=== PATIENT | female | born 1950 | race Caucasian/White ===

== ENCOUNTER 2020-07-26 12:25 | Emergency (ER) | payer MEDICARE, OTHER ==
[~2020-07-26] VITALS: Ht 152.4 cm; Wt 65.0 kg
[~2020-07-26 12:25] MED LIST: ADVAIR DISKU IN; ALTACE2.5 MG PO; ANASPAZ0.125 MG PO; B-12 DOTS500 MCG SL; CIT CALCIUM200 MG PO; DOXYCYCL HYC100 MG PO; FAMOTIDINE40 M1 PO; HUMALOG KWI100 MG/ML SC; LIPITOR20 M1 PO; OMEGA 31000 MG PO; STOOL SOFTNR100 M2 PO; TERBINAFINE250 M1 PO; VITAMIN D31000 UNI1 PO
[2020-07-26 13:04] LABS: HEMOGLOBIN 10.4 g/dl (12.0-16.0); IMMATURE GRANULOCYTES 1.1 % (0.0-5.0); MEAN CELL VOLUME 98.5 fL CALC (80.0-100.0); MEAN CORPUSCULAR HGB CONC 31.5 g/dL CAL (32.0-36.0); NEUT# 19.18 thou/uL (2.00-7.15); RED BLOOD COUNT 3.35 mill/uL (4.20-5.60); RED CELL DISTRI WIDTH 13.4 % (11.5-15.5)
[2020-07-26 13:19] LABS: ALBUMIN 3.6 g/dL (3.2-5.0); ALKALINE PHOSPHATASE 95 u/l (38-126); ANION GAP 26 (6-22 (CALC)); BILIRUBIN, TOTAL 0.8 mg/dL (0.0-1.4); BUN 40 mg/dL (8-23); BUN/CREATININE RATIO 22 (12-20 (CALC)); CARBON DIOXIDE 13 mmol/l (22-30); CHLORIDE 97 mmol/l (95-108); CREATININE 1.8 mg/dL (0.5-1.0); GFR 28 ML/MIN (>=60 (CALC)); GFR FOR AFR.AMER. 34 ML/MIN (>=60 (CALC)); POTASSIUM 4.9 mmol/l (3.5-5.1); SGOT/AST 82 u/l (9-36); SODIUM 131 mmol/l (137-146); TOTAL PROTEIN 6.7 g/dL (6.3-8.2)
[2020-07-26 14:24] VITALS: BP 97/60
== END 2020-07-26 14:24 | disposition short-term general hospital (02) ==
LOC: ED 12:25
DX: I21.4 Non-ST elevation (NSTEMI) myocardial infarction (principal); E10.10 Type 1 diabetes mellitus with ketoacidosis without coma; D72.829 Elevated white blood cell count, unspecified; Z79.4 Long term (current) use of insulin; Z20.822 Contact with and (suspected) exposure to COVID-19

== ENCOUNTER 2021-08-18 23:57 | Emergency (ER) | payer MEDICARE, OTHER ==
[~2021-08-18] VITALS: Ht 152.4 cm; Wt 53.6 kg
[2021-08-19] VITALS (9 sets, daily range): BP systolic 90–114; BP diastolic 54–76
[2021-08-19 00:48] LABS: HEMATOCRIT 34.7 % (37.0-47.0); HEMOGLOBIN 10.7 g/dl (12.0-16.0); IMMATURE GRANULOCYTES 0.6 % (0.0-5.0); MEAN CELL VOLUME 101.8 fL CALC (80.0-100.0); MEAN CORPUSCULAR HGB 31.4 pG CALC (26.0-32.0); MEAN CORPUSCULAR HGB CONC 30.8 g/dL CAL (32.0-36.0); NEUT# 10.83 thou/uL (2.00-7.15); RED BLOOD COUNT 3.41 mill/uL (4.20-5.60)
[2021-08-19 01:18] LABS: ALBUMIN 3.8 g/dL (3.2-5.0); ALKALINE PHOSPHATASE 99 u/l (38-126); BILIRUBIN, TOTAL 0.8 mg/dL (0.0-1.4); CHLORIDE 106 mmol/l (95-108); CREATININE 0.9 mg/dL (0.5-1.0); GFR FOR AFR.AMER. > 60 ML/MIN (>=60 (CALC)); GFR OTHER RACES > 60 ML/MIN (>=60 (CALC)); POTASSIUM 4.9 mmol/l (3.5-5.1); SGOT/AST 54 u/l (9-36); TOTAL PROTEIN 7.1 g/dL (6.3-8.2)
[2021-08-19 01:32] LABS: MYOGLOBIN 51 ng/mL (0 - 62)
[2021-08-19 01:33] LABS: ANION GAP 14 (6-22 (CALC)); BUN 18 mg/dL (8-23); BUN/CREATININE RATIO 20 (12-20 (CALC)); CARBON DIOXIDE 24 mmol/l (22-30); SODIUM 139 mmol/l (137-146)
[2021-08-19 02:04] LABS: ACT PARTIAL THROMBO TIME 24.5 SECONDS (20.0-32.5); INTERNATIONAL NORMALIZED RATIO 1.3 RATIO (0.7-1.3); PROTHROMBIN TIME 13.7 SECONDS (9.0-12.5)
== END 2021-08-19 03:12 | disposition short-term general hospital (02) ==
LOC: ED 23:57
PROVIDERS: Emergency Medicine
DX: I21.4 Non-ST elevation (NSTEMI) myocardial infarction (principal); I10 Essential (primary) hypertension; E11.9 Type 2 diabetes mellitus without complications; Z79.4 Long term (current) use of insulin; Z20.822 Contact with and (suspected) exposure to COVID-19
CPT/HCPCS: J1644; Q9967

== ENCOUNTER 2021-09-19 07:10 | Inpatient (IN) | payer MEDICARE, OTHER ==
[2021-09-19] VITALS (21 sets, daily range): BP systolic 91–122; BP diastolic 42–71
[~2021-09-19] VITALS: Ht 152.4 cm; Wt 51.6 kg
[2021-09-19] MEDS ORDERED: ADVAIR DISK1 INH (07:41)
[2021-09-19] MEDS ORDERED: SG ASA LOW81 M1 PO (07:42)
[2021-09-19] MEDS ORDERED: CLOPIDOGREL75 MG PO (07:43)
[2021-09-19] MEDS ORDERED: DOCUSATE CAL240 MG PO (07:44)
[2021-09-19] MEDS ORDERED: EUTHYROX50 MCG PO (07:45)
[2021-09-19] MEDS ORDERED: DORZOLAMIDE HCL2 % OU (07:45)
[2021-09-19] MEDS ORDERED: FUROSEMIDE20 MG PO (07:47)
[2021-09-19] MEDS ORDERED: XALATAN0.005 % OU (07:47)
[2021-09-19] MEDS ORDERED: SPIRONOLACTONE25 MG PO (07:48)
[2021-09-19] MEDS ORDERED: INSULIN (07:50)
[2021-09-19 07:59] LABS: HEMATOCRIT 32.8 % (37.0-47.0); HEMOGLOBIN 10.1 g/dl (12.0-16.0); IMMATURE GRANULOCYTES 0.2 % (0.0-5.0); MEAN CELL VOLUME 98.2 fL CALC (80.0-100.0); MEAN CORPUSCULAR HGB 30.2 pG CALC (26.0-32.0); MEAN CORPUSCULAR HGB CONC 30.8 g/dL CAL (32.0-36.0); NEUT# 10.43 thou/uL (2.00-7.15); RED BLOOD COUNT 3.34 mill/uL (4.20-5.60); RED CELL DISTRI WIDTH 15.7 % (11.5-15.5)
[2021-09-19 08:29] LABS: ALBUMIN 3.2 g/dL (3.2-5.0); ALKALINE PHOSPHATASE 87 u/l (38-126); ANION GAP 12 (6-22 (CALC)); BILIRUBIN, TOTAL 1.1 mg/dL (0.0-1.4); BUN 17 mg/dL (8-23); BUN/CREATININE RATIO 17 (12-20 (CALC)); CARBON DIOXIDE 27 mmol/l (22-30); CHLORIDE 98 mmol/l (95-108); GFR FOR AFR.AMER. > 60 ML/MIN (>=60 (CALC)); GFR OTHER RACES 55 ML/MIN (>=60 (CALC)); LIPASE 32 u/l (23-300); POTASSIUM 3.5 mmol/l (3.5-5.1); SGOT/AST 20 u/l (9-36); SODIUM 133 mmol/l (137-146); TOTAL PROTEIN 6.7 g/dL (6.3-8.2)
[2021-09-19 09:44] LABS: URINE BLOOD DIPSTICK NEGATIVE (NEGATIVE); URINE COLOR YELLOW; URINE GLUCOSE - DIPSTICK NEGATIVE (NEGATIVE); URINE KETONE 15 mg/dL (NEGATIVE); URINE LEUK ESTERASE NEGATIVE (NEGATIVE); URINE PH 5.5 (4.5-8.0); URINE PROTEIN - DIPSTICK NEGATIVE (NEG-TRACE); URINE SPECIFIC GRAVITY 1.025
[2021-09-19 09:51] LABS: URINE BILIRUBIN - DIPSTICK SMALL (NEGATIVE); URINE NITRITE - DIPSTICK NEGATIVE (Negative)
[2021-09-20] VITALS (8 sets, daily range): BP systolic 94–122; BP diastolic 43–63
[2021-09-20 06:00] LABS: CREATININE 1.1 mg/dL (0.5-1.0); MAGNESIUM 1.8 mg/dL (1.6-2.3); POTASSIUM 3.5 mmol/l (3.5-5.1)
[2021-09-20] MEDS ORDERED: NOVOLOG100 UNIT SC (09:45)
[2021-09-21 03:46] VITALS: BP 107/57
[2021-09-21 05:42] LABS: ANION GAP 11 (6-22 (CALC)); BUN 22 mg/dL (8-23); BUN/CREATININE RATIO 22 (12-20 (CALC)); CARBON DIOXIDE 29 mmol/l (22-30); CHLORIDE 99 mmol/l (95-108); GFR FOR AFR.AMER. > 60 ML/MIN (>=60 (CALC)); GFR OTHER RACES 55 ML/MIN (>=60 (CALC)); POTASSIUM 3.8 mmol/l (3.5-5.1); SODIUM 134 mmol/l (137-146)
[2021-09-21 06:51] VITALS: BP 101/51
[2021-09-21 10:33] VITALS: BP 88/46
[2021-09-21] MEDS ORDERED: VIBRAMYCIN100 M2 PO (10:49)
== END 2021-09-21 14:22 | disposition home or self-care (01) | DRG 291 ==
LOC: ED 07:10 → ED-I 08:15 → ED 08:15 → ED-I 09:15 → ED 10:09 → MS2 10:10
PROVIDERS: Family Medicine; ADMIT Internal Medicine; ATTEND Internal Medicine
DX: I11.0 Hypertensive heart disease with heart failure (principal); J18.9 Pneumonia, unspecified organism; I50.23 Acute on chronic systolic (congestive) heart failure; I25.5 Ischemic cardiomyopathy; I25.10 Atherosclerotic heart disease of native coronary artery without angina pectoris; E10.8 Type 1 diabetes mellitus with unspecified complications; E03.9 Hypothyroidism, unspecified; H40.9 Unspecified glaucoma; I25.2 Old myocardial infarction; Z95.5 Presence of coronary angioplasty implant and graft; Z96.41 Presence of insulin pump (external) (internal); Z79.82 Long term (current) use of aspirin; Z79.02 Long term (current) use of antithrombotics/antiplatelets; Z79.4 Long term (current) use of insulin; Z20.822 Contact with and (suspected) exposure to COVID-19
CPT/HCPCS: J1650